=== PATIENT | female | born 1960 | race Caucasian/White ===

== ENCOUNTER 2017-12-04 08:50 | Emergency (ER) | payer BC ==
[~2017-12-04] VITALS: Ht 160 cm; Wt 65.6 kg
[~2017-12-04 08:50] MED LIST: BP med; PRILOSEC40 MG PO; ZANTAC300 MG PO; cholesterol med; thyroid med
[2017-12-04] MEDS ORDERED: NEOMYCIN-POLYMY10 M1 LEFT EAR (09:40)
[2017-12-04 10:30] VITALS: BP 198/99
== END 2017-12-04 10:31 | disposition home or self-care (01) ==
LOC: EME 08:50
PROC: 09C4XZZ Extirpation of Matter from Left External Auditory Canal, External Approach (ICD-10-PCS; principal; 2017-12-04)
DX: S00.412A Abrasion of left ear, initial encounter (principal); T16.2XXA Foreign body in left ear, initial encounter; Y93.H2 Activity, gardening and landscaping; Y92.096 Garden or yard of other non-institutional residence as the place of occurrence of the external cause; I10 Essential (primary) hypertension; E78.5 Hyperlipidemia, unspecified; E03.9 Hypothyroidism, unspecified; Z87.891 Personal history of nicotine dependence
CPT/HCPCS: 99281; 99284

== ENCOUNTER 2017-12-19 13:56 | Emergency (ER) | payer BC ==
[~2017-12-19] VITALS: Ht 160 cm; Wt 64.0 kg
[~2017-12-19 13:56] MED LIST changes: +NEOMYCIN-POLYMY10 M1 LEFT EAR
[2017-12-19 14:27] LABS: HEMATOCRIT 40.3 % (36.0-46.0); HEMOGLOBIN 13.9 G/DL (11.9-15.5); MCH 29.4 PG (29.0-34.0); MCHC 34.5 G/DL (30.0-36.0); MCV 85.4 FL (83-99); PLATELET COUNT 235 K/uL (156-360); RBC DIS.WIDTH-CV 12.8 % (11.8-14.6); RBC DIS.WIDTH-SD 39.6 % (39-53); RED BLOOD COUNT 4.72 M/uL (3.80-5.20); WHITE BLOOD COUNT 7.7 K/uL (4.1-10.2)
[2017-12-19 14:38] LABS: CHLORIDE 112 mEq/L (99-109); POTASSIUM 3.8 mEq/L (3.7-5.4); SODIUM 143 mEq/L (136-147)
[2017-12-19 14:39] LABS: GLUCOSE 110 mg/dL (70-99)
[2017-12-19 14:43] LABS: CREATININE 1.1 mg/dL (0.6-1.3); GFR ESTIMATE (CALCULATED) 55 mL/min/
[2017-12-19 14:44] LABS: UREA NITROGEN (BUN) 18 mg/dL (9-23)
[2017-12-19 14:47] LABS: TROP-I INTERPRETATION NEGATIVE; TROPONIN-I < 0.01 ng/mL (0.0-0.30)
[2017-12-19 16:21] VITALS: BP 186/112
== END 2017-12-19 16:21 | disposition home or self-care (01) ==
LOC: EME 13:56
DX: R00.2 Palpitations (principal); I10 Essential (primary) hypertension; E78.5 Hyperlipidemia, unspecified; Z87.891 Personal history of nicotine dependence
CPT/HCPCS: 71046; 80048; 84484; 85027; 93005; 99281; 99284